=== PATIENT | male | born 1975 | race Two or more races ===

== ENCOUNTER 2024-01-27 07:39 | Emergency (ER) | payer OTHER, SELFPAY ==
[2024-01-27] VITALS (14 sets, daily range): BP systolic 110–134; BP diastolic 70–88; PULSE 56–78; TEMP 36.5; O2SAT 99–100; BMI 19.4
--- NOTE | 2024-01-27 | ECG_ITS ---
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
--- NOTE | 2024-01-27 07:57 | ECG_ITS ---
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
--- NOTE | 2024-01-27 07:57 | XR_ITS ---
The [address] [address] Patient Name: PEDRO DAVIS MRN: [id number] date: 1975 Sex: M Assigned Patient Location: ER Current Patient Location: Accession/Order Number: [id number] Exam Date: 01/27/2024 08:01 Report Date: 01/27/2024 10:57 At the request of: KELLEE MENDOZA Procedure: XR chest 1V EXAM: XR chest 1V HISTORY: chest pain COMPARISON: CT abdomen/pelvis 10/06/2020. TECHNIQUE: AP chest x-ray. FINDINGS: Cardiac size appears within normal limits. Trachea is midline. No mediastinal widening. Lungs appear clear. No pneumothorax or effusion is identified. Osseous structures appear intact. XR/XR chest 1V IMPRESSION: No acute cardiopulmonary process is identified. Electronically authenticated by: FIFI HARMON Date: 01/27/2024 10:57
--- NOTE | 2024-01-27 08:00 | PC.NURSE ---
Chest pain that started approx 30 mins ago while at work -- 6/10 on pain scale, radiating to L chest. [place] some nausea and lightheadedness,
[2024-01-27 08:07] LABS: Basophils Percent Auto 0.4 % (0.2-2.0); Eosinophils Absolute Auto 0.1 10^3/uL (0.0-0.7); Hematocrit 38.8 % (42.0-54.0); Hemoglobin 12.9 g/dL (14.0-18.0); Immature Granulocytes Abs Auto 0.01 10^3/uL (0.00-0.03); Immature Granulocytes Pct Auto 0.1 % (0.0-0.5); Lymphocytes Percent Auto 27.7 % (20.5-60.0); Mean Corpuscular HGB Conc 33.2 g/dL (29.9-35.2); Mean Corpuscular Hemoglobin 30.4 pg (25.9-34.0); Mean Corpuscular Volume 91.5 fL (80.0-94.0); Mean Platelet Volume 8.9 fL (9.5-13.5); Monocytes Absolute Auto 0.5 10^3/uL (0.3-0.8); Neutrophils Absolute Auto 4.6 10^3/uL (1.4-6.5); Neutrophils Percent Auto 63.8 % (43.0-75.0); Platelet Count 253 10^3/uL (150-450); Red Blood Count 4.24 10^6/uL (4.70-6.10); Red Cell Distribution Width 13.9 % (11.0-15.0); White Blood Count 7.1 10^3/uL (4.0-11.0)
[2024-01-27] MEDS: ASPIRIN 81 MG TAB.CHEW 162 MG PO (08:12)
--- NOTE | 2024-01-27 08:15 | ED_ITS ---
HPI HPI - General Adult General Chief complaint: Chest Pain Stated complaint: SHORTNESS OF BREATH/ GENERAL WEAKNESS Time Seen by Provider: 01/27/24 07:58 Source: patient and friend Mode of arrival: Wheelchair Limitations: no limitations History of Present Illness HPI narrative: Patient is a 49-year-old male who is presenting to the ER today with chief complaint of chest pain heaviness, lightheaded, dizziness, mild vertigo, nausea, no vomiting. Patient was at work. 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 Patient has had no recent falls, head injuries, patient felt like he was going to pass out. Patient was working, became sweaty, had some tingling feelings in his arms and legs, no strokelike signs or symptoms. Patient is like using a half the pass out. He sat down. One of his friends drove him to work. Patient feels much better at this time. No change in diet, he has been eating and drinking normally in the last few days. Patient has no medical history. Patient does smoke marijuana daily. Occasional alcohol, no other illicit drugs. Patient does smoke cigarettes. All systems are negative except as noted/marked. All systems reviewed and otherwise negative. Nurses note and vital signs reviewed and patient is not hypoxic. General: The patient appears well and in no apparent distress. Patient is resting comfortably on cart. Patient is not toxic, lethargic, or listless Skin: Warm, dry, no pallor noted. There is no rash noted. No petechiae, purpura. Head: Normocephalic, atraumatic Eye: Normal conjunctiva, no drainage, EOMI. PERRL Ears, Nose, Mouth, and Throat: oral mucosa is moist. Nares patent. Mouth without vesicles. Cardiovascular: Regular Rate and Rhythm, no murmur, gallop, rub. No reproducible tenderness to palpation Respiratory: Patient is in no distress, no accessory muscle use, lungs are clear to auscultation, no wheezing, rales or rhonchi Back: non-tender, no CVA tenderness bilaterally to percussion. No CT LS midline pain GI: no tenderness to palpation, no masses appreciated. No rebound, guarding, or rigidity noted. No distention. No midepigastric tenderness palpation. Musculoskeletal: Patient has full range of motion of all of the extremities, no motor, sensory, or focal neurological deficits. Physically fit. Neurological: A&O x4, normal speech Psychiatric: Cooperative Related Data Previous Rx's ?Medication ?Instructions ?Recorded meclizine 25 mg chewable tablet 25 mg PO TID PRN dizziness or 01/27/24 (Antivert) vertigo #7 tabs ondansetron 4 mg disintegrating 4 mg PO Q4H PRN nausea and 01/27/24 tablet vomiting 3 days #6 tabs Allergies Allergy/AdvReac Type Severity Reaction Status Date / Time No Known Drug Allergies Allergy Verified 01/27/24 07:46 Opioid HPI Opioid Management Most Recent Opioid Data: Last Pain Scale 6 01/27/24 07:53 Exam Constitutional Vital Signs, click to edit/add: Last Vital Signs Temp 97.7 F 01/27/24 07:46 Pulse 75 01/27/24 07:46 Resp 18 01/27/24 07:46 BP 128/70 01/27/24 07:46 Pulse Ox 100 01/27/24 07:46 O2 Del Method Room Air 01/27/24 07:46 Course Vital Signs Vital signs: Vital Signs Temperature 97.7 F 01/27/24 07:46 Pulse Rate 75 01/27/24 07:46 Respiratory Rate 18 01/27/24 07:46 Blood Pressure 128/70 01/27/24 07:46 Pulse Oximetry 100 01/27/24 07:46 Oxygen Delivery Method Room Air 01/27/24 07:46 Temperature 97.7 F 01/27/24 07:46 Pulse Rate 75 01/27/24 07:46 Respiratory Rate 18 01/27/24 07:46 Blood Pressure 128/70 01/27/24 07:46 Pulse Oximetry 100 01/27/24 07:46 Oxygen Delivery Method Room Air 01/27/24 07:46 Medical Decision Making MDM Narrative Medical decision making narrative: Patient was given 1 L of IV fluids, Antivert, Zofran. Patient was given aspirin prophylactically. EKG, chest x-ray, lab work showed no acute findings. Patient's heart score is 2, 1 for age,1 smoking cigarettes Patient EKG, chest x-ray, lab work shows no acute findings. Patient felt much better after 1 L of IV fluid, Zofran and Antivert that was given. Patient was given a work note. Patient was given 2 prescriptions for Zofran and Antivert to use as needed. Patient will follow-up with PCP if he has continued symptoms for outpatient testing or return back to the ER if any other acute concerns. Patient understands this, no questions at discharge. Lab Data Lab results reviewed: Yes I reviewed the patient's lab results Labs: Lab Results 01/27/24 Range/Units 07:50 WBC 7.1 (4.0-11.0) 10^3/uL RBC 4.24 L (4.70-6.10) 10^6/uL Hgb 12.9 L (14.0-18.0) g/dL Hct 38.8 L (42.0-54.0) % MCV 91.5 (80.0-94.0) fL MCH 30.4 (25.9-34.0) pg MCHC 33.2 (29.9-35.2) g/dL RDW 13.9 (11.0-15.0) % Plt Count 253 (150-450) 10^3/uL MPV 8.9 L (9.5-13.5) fL Neut % (Auto) 63.8 (43.0-75.0) % Lymph % (Auto) 27.7 (20.5-60.0) % Cedar % (Auto) 7.0 (1.7-12.0) % Eos % (Auto) 1.0 (0.9-7.0) % Baso % (Auto) 0.4 (0.2-2.0) % Neut # (Auto) 4.6 (1.4-6.5) 10^3/uL Lymph # (Auto) 2.0 (1.2-3.8) 10^3/uL Cedar # (Auto) 0.5 (0.3-0.8) 10^3/uL Eos # (Auto) 0.1 (0.0-0.7) 10^3/uL Baso # (Auto) 0.0 (0.0-0.1) 10^3/uL Abs Immat Gran (auto) 0.01 (0.00-0.03) 10^3/uL Imm/Tot Granulo (auto) 0.1 (0.0-0.5) % PT 10.3 (9.0-11.6) sec INR 0.97 APTT 25.9 (22.3-36.2) sec D-Dimer 0.20 (<=0.59) mg/L FEU Sodium 141 (136-145) mmol/L Potassium 3.6 (3.5-5.1) mmol/L Chloride 104 (98-107) mmol/L Carbon Dioxide 25.5 (21.0-32.0) mmol/L Anion Gap 15.1 BUN 11.0 (7.0-18.0) mg/dL Creatinine 0.96 (0.70-1.30) mg/dL Est GFR ( Amer) >60 (>=60) Est GFR (Non-Af Amer) >60 (>=60) BUN/Creatinine Ratio 11.5 Glucose 112 H (74-106) mg/dL Calcium 8.8 (8.5-10.1) mg/dL Total Bilirubin 0.4 (0.2-1.0) mg/dL AST 22 (15-37) U/L ALT 21 (16-63) U/L Alkaline Phosphatase 42 L (46-116) U/L Troponin I High Sens 4.3 (4.0-76.1) pg/mL Total Protein 6.9 (6.4-8.2) g/dL Albumin 3.6 (3.4-5.0) g/dL Globulin 3.3 g/dL Albumin/Globulin Ratio 1.1 ECG Data Attestation: I personally reviewed and interpreted this ECG as follows: (EKG interpretation. Normal sinus rhythm at 60 beats a minute. Normal axis deviation. No acute ST elevation, no acute ectopy. QTc of 418) Discharge Plan Discharge Stand Alone Forms: Work/School Release Chief Complaint: Chest Pain Clinical Impression: Near syncope, Chest pain, Nausea & vomiting, Dizziness Patient Disposition: Home, Self-Care Time of Disposition Decision: 10:10 Condition: Fair Prescriptions / Home Meds: New ondansetron 4 mg tablet,disintegrating 4 mg PO Q4H PRN (Reason: nausea and vomiting) 3 Days Qty: 6 0RF meclizine [Antivert] 25 mg tablet,chewable 25 mg PO TID PRN (Reason: dizziness or vertigo) Qty: 7 0RF Print Language: Citizen Of [place] Instructions: Chest Pain (ED), Acute Nausea and Vomiting (ED), Near Syncope (ED), Lightheadedness (ED), Dizziness (ED) Additional Instructions: Increase fluids, Gatorade, Powerade or water. Use nausea and/or vertigo medication as needed. If you continue to have symptoms of almost passing out, follow-up with PCP for outpatient cardiac testing and any other testing indicated. If any other acute concerns, return back to the ER Referrals: Physician,Non-Staff, MD [Primary Care Provider] - 1 week
[2024-01-27 08:23] LABS: Alanine Aminotransferase 21 U/L (16-63); Albumin Globulin Ratio 1.1; Albumin Level 3.6 g/dL (3.4-5.0); Alkaline Phosphatase 42 U/L (46-116); Anion Gap 15.1; Aspartate Amino Transferase 22 U/L (15-37); BUN Creatinine Ratio 11.5; Bilirubin Total 0.4 mg/dL (0.2-1.0); Calcium 8.8 mg/dL (8.5-10.1); Carbon Dioxide 25.5 mmol/L (21.0-32.0); Chloride 104 mmol/L (98-107); Estimated GFR (African America >60 (>=60); Estimated GFR (Non-African Ame >60 (>=60); Globulin 3.3 g/dL; Glucose 112 mg/dL (74-106); INR 0.97; Partial Thromboplastin Time 25.9 sec (22.3-36.2); Potassium 3.6 mmol/L (3.5-5.1); Prothrombin Time 10.3 sec (9.0-11.6); Sodium 141 mmol/L (136-145); Total Protein 6.9 g/dL (6.4-8.2); Troponin I High Sensitivity 4.3 pg/mL (4.0-76.1)
[2024-01-27] MEDS: 0.9 % SODIUM CHLORIDE 1,000 ML 1000 ML IV (08:37)
[2024-01-27] MEDS: ONDANSETRON PF 4 MG/2 ML VIAL IV (08:37)
[2024-01-27] MEDS: MECLIZINE HCL 12.5 MG TABLET 25 MG PO (08:37)
--- NOTE | 2024-01-27 09:38 | PC.NURSE ---
pt up using bathroom. denies feeling dizzy or any chest pain. fluids completed.
== END 2024-01-27 10:29 | disposition home or self-care (01) ==
PROVIDERS: Emergency Provider Emergency Medicine
DX: R07.9 Chest pain, unspecified (principal); R55 Syncope and collapse; R11.2 Nausea with vomiting, unspecified; R42 Dizziness and giddiness
CPT/HCPCS: 36415; 71045; 80053; 84484; 85025; 85378; 85610; 85730; 93005; 96361; 96374; 99285; J2405